=== PATIENT | male | born 1995 | race Caucasian/White ===

== ENCOUNTER 2018-07-26 10:29 | Emergency (ER) | payer OTHER ==
[2018-07-26 10:37] VITALS: BP 173/100
--- NOTE | 2018-07-26 10:39 | EDPHY ---
H & P Source: Patient Exam Limitations: Intoxication Time Seen by Provider: 07/26/18 10:36 HPI/ROS: HPI: This is a 23-year-old male who presents with Chief Complaint: Left shoulder, upper back pain Location: Left shoulder, scapula Quality: Pain Duration: 4 years Signs and Symptoms: No bleeding, no radiation, no numbness, no weakness, no tingling, no incontinence, no decreased range of motion, no swelling, + pain, no fever Timing: Chronic Severity: Moderate Context: Patient arrives via EMS with complaints of nontraumatic left shoulder , left scapula pain that has been occurring for the last 4 years. After further questioning, patient admits that he recently moved to the area from [place], [place]. He suffers from alcoholism and anxiety. He had been staying in a hotel locally for the last 5 days but was evicted for non payment this morning. He then decided to call EMS for his left chronic shoulder/scapula pain. Denies LOC/head injury/neck pain/dizziness/nausea/vomiting/amnesia. Last drink was 12 hr ago. Denies any history of alcohol withdrawal seizures. Denies any psychiatric history other than anxiety. Modifying Factors: None Comment: ROS: A comprehensive 10 system review of systems is otherwise negative aside from elements mentioned in the history of present illness. MEDICAL/SURGICAL/SOCIAL HISTORY: Medical history: Anxiety, alcoholism. Surgical history: Denies Social history: Homeless. Originally from [facility]. CONSTITUTIONAL: Intoxicated, smells of alcohol, mildly labile but easily directed young adult white male, awake and alert, no obvious distress HEENT: Atraumatic and normocephalic. NECK: supple, no midline tenderness, flexion 45 degrees, extension 45 degrees, right and left lateral flexion 45 degrees. No meningismus. Cardiovascular: Normal S1/S2, tachycardia, regular rhythm, without murmur rub or gallop. PULMONARY/CHEST: Symmetrical and nontender. no crepitus. Clear to auscultation bilaterally. Good air movement. No accessory muscle usage. ABDOMEN: Soft, nondistended, nontender, no ecchymosis.'BACK: No midline tenderness, no paraspinous spasm, deep tendon reflexes 2/2, no pain with straight leg raise, No foot drop. Achilles reflexes are equal bilaterally. EXTREMITIES: 2/2 pulses, strength 5/5, left SHOULDER: Arc test abduction to 180, abduction to 45, horizontal flexion 130, horizontal extension to 45, deltoid strength 5/5. No pain with Neer test/Woods test (impingement). No Tenderness to palpation over AC joint. No tenderness over the scapula. DIP/PIP/ MCP flexion/extension intact with good light touch sensation. no deformities, no clubbing, no cyanosis or edema. NEUROLOGICAL: no focal neuro deficits. GCS 15. Light touch sensation intact. Pressured speech pattern. SKIN: Warm and dry, no erythema. no rash. Good capillary refill. (Parchman,Terra) Constitutional: Initial Vital Signs Temperature (C) 36.8 C 07/26/18 10:32 Heart Rate 131 H 07/26/18 10:32 Respiratory Rate 18 07/26/18 10:32 Blood Pressure 173/100 H 07/26/18 10:32 O2 Sat (%) 92 07/26/18 10:32 O2 Delivery Mode Room Air Allergies/Adverse Reactions: No Known Allergies Allergy (Unverified 07/26/18 10:37) Home Medications: Medication Instructions Recorded NK [No Known Home Meds] 07/26/18 Medical Decision Making - Diagnostics Imaging Results: Imaging Impressions Scapula X-Ray 07/26/18 10:36 Impression: Negative for fracture. Left scapula, 2 views Reason for examination: Pain following trauma. Findings: A fracture is not identified. The bone alignment is normal. The left acromioclavicular joint appears normal. Impression: Left scapula negative for fracture. Shoulder X-Ray 07/26/18 10:36 Impression: Negative for fracture. Left scapula, 2 views Reason for examination: Pain following trauma. Findings: A fracture is not identified. The bone alignment is normal. The left acromioclavicular joint appears normal. Impression: Left scapula negative for fracture. ED Course/Re-evaluation: Vital signs reviewed and show tachycardia CIWA=3 Left shoulder and scapula x-rays ordered and my read via PAC shows no fracture, dislocation, significant degenerative changes 1045: Given p.o. Ativan 1 mg and p. O. Librium 50 mg Case management consult for primary care provider, [facility], local resources Plan is to [facility] the patient [facility] with Librium prepack No signs of neurovascular compromise/tenting of skin/compartment syndrome/ extremities and joints examined above and below area of concern and are neurovascularly intact. No signs of alcohol withdrawal seizures, delirium tremens, coma 1130: Patient walking around Hospital and Emergency Room. Appropriate for discharge to the [facility]. This patient was seen under the supervision of my secondary supervising physician. I evaluated care for this patient independently. (Melva Casillas) Differential Diagnosis: Shoulder injury differential diagnosis includes but is not limited to clavicle fracture, contusion, AC joint separation, rotator cuff injury, labral tear, humeral head fracture, sprain, scapula fracture. (Melva Casillas) Other Provider: The patient was evaluated and managed by the Physician Line Appliance Assembler. My co- signature indicates that I have reviewed this chart and I agree with the findings and plan of care as documented. I am the secondary supervising physician. (Florecita Escamilla) - Data Points Medications Given: Discontinued Medications Chlordiazepoxide HCl (Librium) 50 mg PO EDNOW ONE Stop: 07/26/18 10:41 Last Admin: 07/26/18 10:43 Dose: 50 mg Lorazepam (Ativan) 1 mg PO EDNOW ONE Stop: 07/26/18 10:41 Last Admin: 07/26/18 10:43 Dose: 1 mg Departure - Departure Disposition: Home, Routine, Self-Care Clinical Impression: Alcohol abuse, Chronic pain in left shoulder Condition: Good Instructions: Alcohol Intoxication (ED), Alcohol Use Disorder (ED) Additional Instructions: You are going to be discharged to the [facility]. Please establish care at the [facility]. Referrals: [facility],. [Clinic] - As per Instructions [facility] [Outside] - As per Instructions [facility] [Outside] - As per Instructions
[2018-07-26] MEDS ORDERED: chlordiazePOXIDE 25 MG CAP PO ONE (10:40)
[2018-07-26] MEDS ORDERED: LORazepam 1 MG TAB PO ONE (10:40)
== END 2018-07-26 11:13 | disposition home or self-care (01) ==
DX: F10.10 Alcohol abuse, uncomplicated (principal); M25.512 Pain in left shoulder; G89.29 Other chronic pain